=== PATIENT | male | born 1940 | race Caucasian/White ===

== ENCOUNTER 2017-05-19 23:32 | Emergency (ER) | payer MEDICARE, OTHER ==
[~2017-05-19] VITALS: Ht 167.6 cm; Wt 81.8 kg
[2017-05-19] MEDS ORDERED: METO50TA7 (23:48)
[2017-05-19] MEDS ORDERED: GLUC750T2 (23:48)
[2017-05-19] MEDS ORDERED: CAPT1TAB18 (23:48)
[2017-05-19] MEDS ORDERED: HYDR25TAB (23:48)
[2017-05-19] MEDS ORDERED: NEFA150T (23:48)
[2017-05-19] MEDS ORDERED: SIMV10TA2 (23:48)
[2017-05-19] MEDS ORDERED: IMIQ5CRE (23:48)
[2017-05-19] MEDS ORDERED: FLUTISP (23:48)
[2017-05-19] MEDS ORDERED: ASPI81TA18 (23:48)
[2017-05-20] MEDS ORDERED: PERCOCET 5MG/325MG TAB PO ONE (03:00)
--- NOTE | 2017-05-20 03:50 | REPUSA ---
CLINICAL HISTORY: Neck pain. TECHNIQUE: Multiple axial images were obtained through the cervical spine. Images were also reconstru cted in coronal and sagittal planes. The study was performed without IV contrast. COMMENTS: There are diffuse spondylotic changes. Findings are demonstrated by disc space narrowing, osteophyte formation and degenerative endplate changes. Facet joint arthropathy. No fracture or dislocation is s een. No aggressive bone lesion is noted. Moderate changes of diffuse idiopathic skeletal hyperostosis. IMPRESSION: Spondylosis. Diffuse idiopathic skeletal hyperostosis. Thank you for your kind referral of this patient.
--- NOTE | 2017-05-20 03:50 | REPUSA ---
CLINICAL HISTORY: Head trauma. TECHNIQUE: Multiple axial brain CT scan sections were obtained from base to vertex without contrast a dministration. COMMENTS: Left parietal subgaleal soft tissue hematoma. There is no evidence of skull fracture. The study shows normal configuration of sella turcica. There are no intra or extra-axial collections. There is no mass effect or midline shift. There is no evidence of hematoma formation. No hydrocephal us is present. No abnormal calcifications are noted. No significant abnormalities are seen either in the posterior fossa or supratentorial compartment. The sinuses and mastoid air cells are patent. IMPRESSION: No evidence of acute intracranial pathology. No intracranial hemorrhage or skull fracture. Thank you for your kind referral of this patient.
--- NOTE | 2017-05-20 04:00 | REPUSA ---
CLINICAL HISTORY: Pain. TECHNIQUE: Multiple axial CT images were obtained through the thoracic spine without IV contrast mate rial. MPR coronal and sagittal sequences were obtained. COMMENTS: Moderate osteopenia of the visualized bones. 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 There is no fracture visualized. The paraspinal soft tissues are unremarkable. There are no lytic or blastic lesions. The paravertebral soft tissue space is normal. IMPRESSION: Diffuse idiopathic skeletal hyperostosis. Thank you for your kind referral of this patient.
[2017-05-20] MEDS ORDERED: PRED20TA PO ×2 (04:23→04:36)
[2017-05-20] MEDS ORDERED: PERC5TAB12 PO ×2 (04:23→04:36)
[2017-05-20] MEDS ORDERED: OXYCODONE/APAP 5MG/325MG(BULK FOR ED) 1 TABLET PO ONE (04:30)
[2017-05-20] MEDS ORDERED: predniSONE 20 MG TAB PO ONE (04:30)
[2017-05-20 04:49] VITALS: BP 120/60
== END 2017-05-20 04:51 | disposition home or self-care (01) ==
LOC: M ED 23:32
DX: M54.9 Dorsalgia, unspecified (principal); Z91.81 History of falling; M48.12 Ankylosing hyperostosis [Forestier], cervical region; Z79.899 Other long term (current) drug therapy; Z79.82 Long term (current) use of aspirin

== ENCOUNTER → 2020-09-05 | Outpatient (CLI) | payer MEDICARE, OTHER ==
[~2020-09-05] MED LIST: ASPI81TA52; CAPT1TAB18; FLUTISP; GLUC750T13; HYDR-3490; IMIQ5CRE; METO50TA7; NEFA150T; PERC5TAB12 PO; PRED20TA PO; SIMV10TA21
--- NOTE | 2020-09-06 23:40 | ECWPNPC ---
PATIENT NAME: OLEKSANDR CHANEL : 1940 GENDER: MALE VISIT DATE: 09/05/2020 DISCHARGE DATE: 09/05/20 0956 VISIT LOCKED DATE TIME: PHYSICIAN: FRANCESCA BENTON RESOURCE: FRANCESCA BENTON REASON FOR APPOINTMENT 1. DISCOMFORT INTERSCAPULAR AROUND THE C7 AREA,CERVICAL SPONDYLOSIS HISTORY OF PRESENT ILLNESS DEPRESSION SCREENING: PHQ-2 (2015 EDITION) LITTLE INTEREST OR PLEASURE IN DOING THINGS?NOT AT ALL FEELING DOWN, DEPRESSED, OR HOPELESS?NOT AT ALL TOTAL SCORE0 GENERAL: 80-YEAR-OLD GENTLEMAN BEING REFERRED BY [facility] FOR PERSISTENT NECK AND UPPER BACK PAIN. SUSTAINED INJURIES AFTER FALLING A FEW YEARS AGO. HE WAS SEEN AT THE EMERGENCY ROOM [facility]. HE ATTENDED PHYSICAL THERAPY WITH NO IMPROVEMENT. CONTINUES TO BE VERY ACTIVE. PAIN IS AGGRAVATED BY USE OF HIS ARMS. DENIES RECENT FEVER, ILLNESS OR SUDDEN WEIGHT LOSS. DENIES BOWEL OR BLADDER INCONTINENCE. - - -. FALL RISK SCREENING: SCREENING : NO FALLS REPORTED IN THE LAST YEAR , : NO FALLS REPORTED IN THE LAST YEAR. PAIN SCREENING: PATIENT HAS A COMPLAINT OF ACUTE OR CHRONIC PAIN :YES LOCATION OF PAIN:NECK, MID BACK INTENSITY OF PAIN (SCALE OF 1 TO 10):9 WHAT DOES YOUR PAIN FEEL LIKE:THROBBING DURATION:CONTINOUS, CONSTANT, ALL DAY PAIN IS INCREASED BY:ACTIVITIES PAIN IS DECREASED BY:OTHERS " NOTHING YET " TRY HEATING PACK NURSING NOTE: - - -. PAIN CENTER INTAKE QUESTIONS: DO YOU HAVE A HISTORY OF MRSA? :NO DO YOU TAKE A BLOOD THINNERS? :NO DO YOU HAVE ANY BLEEDING DISORDERS? :NO ANY NEW NUMBNESS OR WEAKNESS IN YOUR LEGS OR ARMS? :NO ANY PACEMAKER,DEFIBRILLATOR, OR DORSAL COLUMN STIMULATOR? :NO DO YOU HAVE ANY RASHES OR OPEN SORES? :NO ARE YOU ALLERGIC TO IV DYE? :NO ARE YOU DIABETIC? :NO ANY NEW PROBLEMS WITH YOUR MEDICATIONS? :NO HAVE YOU RECEIVED A VACCINE IN THE PAST 30 DAYS? :YES IF SO WHAT VACCINE AND WHEN? 2ND COVID 09/05/2020 DO YOU PLAN TO RECEIVE A VACCINE IN THE NEXT 21 DAYS? :NO DO YOU NEED ANY PRESCRIPTION? :NO DO YOU TAKE ANY IMMUNOSUPPRESSIVE MEDICATIONS? :NO CURRENT MEDICATIONS TAKING ACETAMINOPHEN 325 MG CAPSULE 1 CAPSULE NEEDED ORALLY EVERY 4 HRS TAKING ASPIRIN 81 MG TABLET DELAYED RELEASE 1 TABLET ORALLY ONCE A DAY TAKING CAPTOPRIL 50 MG TABLET 2 TABLET ORALLY TWICE A DAY TAKING CENTRUM SILVER ADULT 50+ - TABLET DIRECTED ORALLY 50 TAKING CLOBETASOL PROPIONATE 0.05 % SOLUTION 1 APPLICATION EXTERNALLY TWICE A DAY TAKING FISH OIL 1000 MG CAPSULE 1 CAPSULE ORALLY TWICE A DAY TAKING GLUCOSAMINE CHOND DOUBLE STR - TABLET DIRECTED ORALLY 500-400MG TAKING HYDROCHLOROTHIAZIDE 25 MG TABLET 1 TABLET IN THE MORNING ORALLY ONCE A DAY TAKING LIDODERM 5 % PATCH 1 PATCH REMOVE AFTER 12 HOURS EXTERNALLY ONCE A DAY TAKING METOPROLOL TARTRATE 50 MG TABLET 3 TABLET WITH FOOD ORALLY TWICE A DAY TAKING MOBIC 7.5 MG TABLET 1 TABLET ORALLY ONCE A DAY TAKING NEFAZODONE HCL 150 MG TABLET 1 TABLET ORALLY TWICE A DAY TAKING SIMVASTATIN 10 MG TABLET 1 TABLET IN THE EVENING ORALLY ONCE A DAY TAKING VITAMIN E 1000 UNIT CAPSULE 1 CAPSULE ORALLY ONCE A DAY MEDICATION LIST REVIEWED AND RECONCILED WITH THE PATIENT PAST MEDICAL HISTORY NECK PAIN ALLERGIES NKEA NKFA NIACIN SURGICAL HISTORY RIGHT ARM SHOULDER, RIGHT LEG INGUINAL HERNIA REPAIR- BILATERAL FAMILY HISTORY FATHER: , DIAGNOSED WITH UNSPECIFIED HEART DISEASE MOTHER: , HYPERTENSION SIBLINGS: ALIVE SON(S): ALIVE DAUGHTER(S): ALIVE 1 SISTER(S) - HEALTHY. 1 SON(S) , 2 DAUGHTER(S) - HEALTHY. SOCIAL HISTORY GENERAL: TOBACCO USE ARE YOU A:NONSMOKER LATEX QUESTIONNAIRE LATEX ALLERGY : HAVE YOU EVER DEVELOPED ANY TYPE OF REACTION AFTER HANDLING LATEX PRODUCTS SUCH RUBBER GLOVES, CONDOMS, DIAPHRAGMS, BALLOONS, SOCKS, OR UNDERWEAR?NO LATEX ALLERGY : HAVE YOU EVER DEVELOPED ANY TYPE OF REACTION DURING OR AFTER DENTAL APPOINTMENT, VAGINAL/RECTAL EXAMINATION, SURGICAL PROCEDURE, OR ANY OTHER EXPOSURE?NO LATEX RISK : HAVE YOU EVER HAD ANY DIFFICULTY BREATHING OR HIVES AFTER EATING OR HANDLING ANY FRUITS, OR VEGETABLES; SUCH KIWI, BANANAS, STONE FRUITS, OR CHESTNUTSNO LATEX RISK : DO YOU HAVE A PREVIOUS PERSONAL HISTORY OF MORE THAN NINE SURGERIES, SPINA BIFIDA, OR REPEATED CATHERIZATIONS? NO LATEX RISK : ARE YOU FREQUENTLY EXPOSED TO LATEX PRODUCTS IN YOUR OCCUPATION?NO DATE ASKED : 09/05/2020 ALCOHOL USE: NO. RECREATIONAL DRUG USE DRUG USE?NO LANGUAGE LANGUAGES SPOKEN:DANISH LEARNING BARRIERS / SPECIAL NEEDS CHANGE FROM LAST VISIT?NO BARRIERS TO LEARNING?NO HEARING IMPAIRED?NO VISION IMPAIRED?YES READER COGNITIVELY IMPAIRED?NO READINESS TO LEARN?YES LEARNING PREFERENCES?NO LEARNING CAPABILITIES PRESENT?YES EMOTIONAL BARRIERS?NO SPECIAL DEVICES?NO EXERCISE PLANNER NEEDED?NO DOMESTIC VIOLENCE DO YOU FEEL SAFE IN YOUR ENVIRONMENT?YES HOSPITALIZATION/MAJOR DIAGNOSTIC PROCEDURE SEE ABOVE REVIEW OF SYSTEMS CONSTITUTIONAL: ANY RECENT FEVER NO . CHILLS NO . WEIGHT CHANGE OF UNKNOWN REASONS NO . GASTROENTEROLOGY: NEW UNEXPLAINABLE CHANGES IN BOWEL CONTROL NO . CONSTIPATION NO . GENITOURINARY: ANY NEW CHANGE IN BLADDER CONTROL? NO . NEUROLOGY: NEW ONSET DIZZINESS OR NEUROLOGICAL CHANGES NOT MENTIONED NO . NEW NUMBNESS OR PAIN PATTERNS NOT MENTIONED AND PERTINENT TO TODAY'S VISIT NO . CARDIOLOGY: NEW CHEST PRESSURE NO . PATIENT DENIES NO . RESPIRATORY: UNEXPLAINABLE COUGH NO . NEW SHORTNESS OF BREATH NO . VITAL SIGNS WT 217.2 LBS, HT 67 IN, BMI 34.01 INDEX, BP 175/85 MM HG, HR 68 /MIN, RR 18 /MIN, TEMP 97.7 F, OXYGEN SAT % 98%, SAFE IN ENV? (Y/N) YES, NA INITIALS VA 08:39T.ELYSSA MORSE. EXAMINATION GENERAL EXAMINATION: GENERALNO ACUTE DISTRESS, WELL NOURISHED AND HYDRATED. PSYCHAPPROPRIATE MOOD AND AFFECT . NECK:NO LYMPHADENOPATHY, SUPPLE. LUNGS:CLEAR TO AUSCULTATION BILATERALLY, NO WHEEZES, RHONCHI, RALES. HEART:NO MURMURS, REGULAR RATE AND RHYTHM. MUSCULOSKELETAL: TRIGGER POINTS: ELICITED IN NECK AND UPPER BACK/THORACIC REGION BILATERALLY. ASSESSMENTS MYALGIA, OTHER SITE - M79.18 (PRIMARY) TREATMENT MYALGIA, OTHER SITE NOTES: TRIGGER POINT INJECTIONS BILATERAL NECK,BILATERAL THORACIC-BOOK 2 WEEKS OUT -COVID IMMO PRINTED AND REVIEWED PRE PROCEDURE WITH PATIENT KELLIE MORSE. PROCEDURE CODES FA211 ESTABILISHED PATIENT [facility] CHARGE DISPOSITION & COMMUNICATION FOLLOW UP POST PROCEDURE (REASON: TRIGGER POINT INJECTIONS BILATERAL NECK,BILATERAL THORACIC-BOOK 2 WEEKS OUT -COVID IMMO) ELECTRONICALLY SIGNED BY MANSOOR LEBLANC ON 09/06/2020 AT 02:24 PM EDT DISCLAIMER : THIS IS A VISIT SUMMARY EXTRACTED FROM THE Level CHART. IT IS NOT A COPY OF THE Level PROGRESS NOTE. ZENY
== END ==
LOC: M PAIN 08:30
PROVIDERS: ATTEND Nurse Practitioner Family
DX: M79.18 Myalgia, other site (principal); Z79.82 Long term (current) use of aspirin; Z79.899 Other long term (current) drug therapy

== ENCOUNTER → 2020-09-15 | Outpatient (CLI) | payer MEDICARE, OTHER | LOC: M LABSMTC 09:47 | PROVIDERS: ATTEND Anesthesiology | DX: Z20.822 Contact with and (suspected) exposure to COVID-19 (principal) ==

== ENCOUNTER → 2020-09-20 | Outpatient (CLI) | payer MEDICARE, OTHER ==
[~2020-09-20] MED LIST changes: +BUPIVACAINE HCL 0.25% 10ML VIAL As Ordered ONE; +BUPIVACAINE HCL 0.25% 30ML VIAL As Ordered ONE
--- NOTE | 2020-09-22 02:31 | ECWPNPC ---
PATIENT NAME: OLEKSANDR CHANEL : 1940 GENDER: MALE VISIT DATE: 09/20/2020 DISCHARGE DATE: 09/20/20 1023 VISIT LOCKED DATE TIME: PHYSICIAN: MATTY MCKEON MD RESOURCE: MATTY MCKEON MD REASON FOR APPOINTMENT 1. TRIGGER POINT INJECTIONS BILATERAL NECK,BILATERAL THORACIC HISTORY OF PRESENT ILLNESS GENERAL: -. FALL RISK SCREENING: SCREENING : NO FALLS REPORTED IN THE LAST YEAR. PAIN SCREENING: PATIENT HAS A COMPLAINT OF ACUTE OR CHRONIC PAIN :YES LOCATION OF PAIN:NECK, UPPER BACK INTENSITY OF PAIN (SCALE OF 1 TO 10):9 WHAT DOES YOUR PAIN FEEL LIKE:OTHER "HARD PAIN IN THE CENTER OF MY BACK," MULTIPLE HEADACHES A MONTH AT LEAST ONCE A DAY, TOP OF HEAD. PAIN IS INCREASED BY:ACTIVITIES PAIN IS DECREASED BY:USE OF PAIN MEDICATIONS PLAN/GOALS/TREATMENT/INTERVENTION/FOLLOW UP:SEE PLAN NURSING NOTE: -. PAIN CENTER INTAKE QUESTIONS: DO YOU HAVE A HISTORY OF MRSA? :NO DO YOU TAKE A BLOOD THINNERS? :NO DO YOU HAVE ANY BLEEDING DISORDERS? :NO ANY NEW NUMBNESS OR WEAKNESS IN YOUR LEGS OR ARMS? :NO ANY PACEMAKER,DEFIBRILLATOR, OR DORSAL COLUMN STIMULATOR? :NO DO YOU HAVE ANY RASHES OR OPEN SORES? :NO ARE YOU ALLERGIC TO IV DYE? :NO ARE YOU DIABETIC? :NO ANY NEW PROBLEMS WITH YOUR MEDICATIONS? :NO HAVE YOU RECEIVED A VACCINE IN THE PAST 30 DAYS? :YES IF SO WHAT VACCINE AND WHEN? 2ND COVID VACCINE, EARLY PART OF DO YOU PLAN TO RECEIVE A VACCINE IN THE NEXT 21 DAYS? :NO DO YOU NEED ANY PRESCRIPTION? :NO DO YOU TAKE ANY IMMUNOSUPPRESSIVE MEDICATIONS? :NO ANY HISTORY OF SEIZURES? :NO ANY HISTORY OF CARDIAC ISSUES OR EVENTS? :NO DO YOU HAVE ANY KIDNEY OR LIVER DISEASE? :NO DO YOU HAVE SLEEP APNEA? :NO ANY RECENT HEAD INJURY? :NO DO YOU HAVE ANY NEW INFECTIONS? :NO IS THERE A CHANCE YOU COULD BE ? :N/A ARE YOU BREAST FEEDING? :N/A WHEN DID YOU LAST EAT? : -09/19 2200 WHEN DID YOU LAST DRINK? : -09/20 0800 WHAT DID YOU LAST DRINK? : -WATER NAME OF PERSON DRIVING YOU HOME? : DO YOU HAVE ANY OTHER QUESTIONS OR CONCERNS? : NO CURRENT MEDICATIONS TAKING ACETAMINOPHEN 325 MG CAPSULE 1 CAPSULE NEEDED ORALLY EVERY 4 HRS TAKING ASPIRIN 81 MG TABLET DELAYED RELEASE 1 TABLET ORALLY ONCE A DAY TAKING CAPTOPRIL 50 MG TABLET 2 TABLET ORALLY TWICE A DAY, NOTES: 09/20 699 TAKING CENTRUM SILVER ADULT 50+ - TABLET DIRECTED ORALLY 50 TAKING CLOBETASOL PROPIONATE 0.05 % SOLUTION 1 APPLICATION EXTERNALLY TWICE A DAY TAKING FISH OIL 1000 MG CAPSULE 1 CAPSULE ORALLY ONCE A DAY TAKING GLUCOSAMINE CHOND DOUBLE STR - TABLET DIRECTED ORALLY 500-400MG TAKING HYDROCHLOROTHIAZIDE 25 MG TABLET 1 TABLET IN THE MORNING ORALLY ONCE A DAY, NOTES: 09/20 699 TAKING LIDODERM 5 % PATCH 1 PATCH REMOVE AFTER 12 HOURS EXTERNALLY ONCE A DAY TAKING METOPROLOL TARTRATE 50 MG TABLET 3 TABLET WITH FOOD ORALLY TWICE A DAY, NOTES: 09/20 699 TAKING MOBIC 7.5 MG TABLET 1 TABLET ORALLY ONCE A DAY TAKING NEFAZODONE HCL 150 MG TABLET 1 TABLET ORALLY TWICE A DAY TAKING SIMVASTATIN 10 MG TABLET 1 TABLET IN THE EVENING ORALLY ONCE A DAY TAKING VITAMIN E 1000 UNIT CAPSULE 1 CAPSULE ORALLY ONCE A DAY MEDICATION LIST REVIEWED AND RECONCILED WITH THE PATIENT PAST MEDICAL HISTORY NECK PAIN ALLERGIES NKEA NKFA NIACIN: SYNCOPE SOCIAL HISTORY GENERAL: TOBACCO USE ARE YOU A:NONSMOKER LATEX QUESTIONNAIRE LATEX ALLERGY : HAVE YOU EVER DEVELOPED ANY TYPE OF REACTION AFTER HANDLING LATEX PRODUCTS SUCH RUBBER GLOVES, CONDOMS, DIAPHRAGMS, BALLOONS, SOCKS, OR UNDERWEAR?NO LATEX ALLERGY : HAVE YOU EVER DEVELOPED ANY TYPE OF REACTION DURING OR AFTER DENTAL APPOINTMENT, VAGINAL/RECTAL EXAMINATION, SURGICAL PROCEDURE, OR ANY OTHER EXPOSURE?NO LATEX RISK : HAVE YOU EVER HAD ANY DIFFICULTY BREATHING OR HIVES AFTER EATING OR HANDLING ANY FRUITS, OR VEGETABLES; SUCH KIWI, BANANAS, STONE FRUITS, OR CHESTNUTSNO LATEX RISK : DO YOU HAVE A PREVIOUS PERSONAL HISTORY OF MORE THAN NINE SURGERIES, SPINA BIFIDA, OR REPEATED CATHERIZATIONS? NO LATEX RISK : ARE YOU FREQUENTLY EXPOSED TO LATEX PRODUCTS IN YOUR OCCUPATION?NO DATE ASKED : 09/19/2020 RECREATIONAL DRUG USE DRUG USE?NO LANGUAGE LANGUAGES SPOKEN:MONGOLIAN LEARNING BARRIERS / SPECIAL NEEDS CHANGE FROM LAST VISIT?NO BARRIERS TO LEARNING?NO HEARING IMPAIRED?NO VISION IMPAIRED?YES READING GLASSES COGNITIVELY IMPAIRED?NO READINESS TO LEARN?YES LEARNING PREFERENCES?NO LEARNING CAPABILITIES PRESENT?YES EMOTIONAL BARRIERS?NO SPECIAL DEVICES?NO FIREBOAT OPERATOR NEEDED?NO DOMESTIC VIOLENCE DO YOU FEEL SAFE IN YOUR ENVIRONMENT?YES MARITAL STATUS: . VITAL SIGNS WT 216 LBS, HT 67 IN, BMI 33.83 INDEX, BP 178/81 MM HG, HR 62 /MIN, RR 18 /MIN, TEMP 96.7 F, OXYGEN SAT % 99%, SAFE IN ENV? (Y/N) YES, NA INITIALS WY 09:14, REVIEWED BY: SAMANTHA RN. EXAMINATION GENERAL EXAMINATION: A HISTORY AND PHYSICAL EXAM ON THE PATIENT WAS DONE ON 09/05/2020 (DATE OF ORIGINAL ASSESSMENT) IN PREPARATION OF SURGERY/PROCEDURE. I HAVE NOW REASSESSED THIS PATIENT'S HEALTH STATUS AND PERFORMED AN UPDATED EXAM TODAY. ALL CHANGES IN THE PATIENT'S HISTORY, PHYSICAL EXAM, PRE-EXISTING CONDITONS, AND INDICATIONS/CONTRAINDICATIONS TO THE PLANNED PROCEDURE AND ANESTHESIA ARE DOCUMENTED AND EVALUATED BELOW. I ATTEST TO THE ADEQUACY AND APPROPRIATENESS OF MY ASSESSMENT, AND CONFIRM THE NECESSITY FOR THE PLANNED PROCEDURE. THE PATIENT IS ALERT, ORIENTED TIMES THREE AND COOPERATIVE. LUNGS ARE CLEAR TO AUSCULTATION. HEART SHOWS REGULAR RHYTHM, NO MURMURS AND NO GALLOPS. ASSESSMENTS MYALGIA, OTHER SITE - M79.18 (PRIMARY) TREATMENT MYALGIA, OTHER SITE COMPLETION OF PROCEDURAL VISIT WHEN MEETS CRITERIA NOTES: 09/19/20 1400 PAT COMPLETED. Dennis LEGGETT RN BSN. PROCEDURES PAIN NURSING RECORD PROCEDURE IN ROOM 0910, PHYSICIAN IN ROOM 0948, START 0952, FINISH 0955, PHYSICIAN OUT OF ROOM 0956, OUT OF ROOM 1020, ECG N/A, PATIENT SHIELDED N/A, SAFETY STRAP N/A, PREP ALCOHOL DR. MCKENO, DRESSING TEGADERM Dennis HERNANDEZ RN LOC: 1. ALERT, ORIENTED RESP: 1. REGULAR, NO DYSPNEA COLOR: 1. PINK SKIN: 1. WARM, DRY POSITION: 5. SITTING VITALS: GIRISH HERNANDEZ 09/20/2020 10:10:08 AM > 172/88 HR 66 16 98% R/A D/C V/S COMPLETION OF PROCEDURE APPOINTMENT: POST PAIN 0, DRESSING SITE DRY AND INTACT, IV N/A, GAIT STEADY, TEACHING COMPLETED, PATIENT ACKNOWLEDGES UNDERSTANDING YES, PROCEDURE APPOINTMENT COMPLETED AT 1020 PN TRIGGER POINT INJECTION NO STEROIDS PRE PROCEDURE DIAGNOSIS 1. MYALGIA 2. PAIN AT BILATERAL NECK AREA AND BILATERAL THORACIC AREA POST PROCEDURE DIAGNOSIS 1. MYALGIA 2. PAIN AT BILATERAL NECK AREA AND BILATERAL THORACIC AREA PROCEDURE TRIGGER POINT INJECTION AT BILATERAL NECK AREA AND BILATERAL THORACIC AREA SURGEON DR. MATTY MCKEON QUILTING MACHINE OPERATOR NONE ANESTHESIA LOCAL PRE PROCEDURE NOTE PATIENT WITH HISTORY OF CHRONIC PAIN AT RIGHT AND LEFT NECK AREA AND RIGHT AND LEFT THORACIC AREA. I EVALUATED THE PATIENT AND REVIEWED THE CHART. THERE IS EVIDENCE OF BANDS OF TISSUE WITH RESTRICTION OF MOVEMENT AND PRESENCE OF TRIGGER POINT AT THE RIGHT AND LEFT NECK AREA AND RIGHT AND LEFT THORACIC AREA. I WENT OVER THE RISKS, ALTERNATIVES, AND BENEFITS ASSOCIATED WITH THIS PROCEDURE. THE PATIENT WOULD LIKE TO PROCEED AND GAVE CONSENT TO PERFORM THE PROCEDURE. THE PATIENT DENIES UNEXPLAINABLE WEIGHT LOSS, FEVER, CHILLS, OR NEW CHANGES IN URINARY OR BOWEL CONTROL. THE PATIENT IS COVID-19 NEGATIVE DESCRIPTION OF PROCEDURE THE PATIENT WAS BROUGHT TO THE PROCEDURE ROOM AND PLACED IN THE SITTING POSITION. THE AREA WAS CLEANED WITH ALCOHOL. THE PROCEDURE WAS DONE USING ASEPTIC STERILE TECHNIQUES. A TIMEOUT WAS PERFORMED WHERE THE CONSENTED SITE WAS VERIFIED WITH EVERYONE IN THE ROOM. USING A 25-GAUGE NEEDLE, TRIGGER POINTS WERE INJECTED INTO THE RIGHT AND LEFT NECK AREA AND RIGHT AND LEFT THORACIC AREA WITH A TOTAL OF 40 ML OF BUPIVACAINE 0.25%. AGREED WITH THE PATIENT THE PROCEDURE WAS DONE WITHOUT STEROIDS. THERE WAS NO EVIDENCE OF BLOOD, PARESTHESIA OR CEREBROSPINAL FLUID DURING THE PROCEDURE. THE PATIENT WAS SENT TO THE RECOVERY ROOM. THE PATIENT WAS MOVING THE EXTREMITIES AND DOING WELL. THERE WAS NO COMPLICATION DURING THE PROCEDURE. EBL LESS THAN 5 ML. POST PROCEDURE NOTE DEPENDING ON THE RESULTS, CONSIDER DOING THIS PROCEDURE WITH STEROIDS. DEPENDING ON THE RESULTS OF THAT, CONSIDER FACET BLOCKS. THE PROCEDURE DONE WAS DISCUSSED WITH THE PATIENT. THE PATIENT WILL BE SEEN IN A FOLLOW UP IN THE NEXT FEW WEEKS. I AM LOOKING FOR LONG LASTING PAIN RELIEF FOR THE PATIENT WITH THIS INTERVENTION. INSTRUCTIONS WERE GIVEN, QUESTIONS WERE ANSWERED, AND THE PATIENT EXPRESSED UNDERSTANDING AND AGREES WITH THE PLAN. I, DAREK SIDHU, DOCUMENTED THE ABOVE INFORMATION ACTING A SCRIBE FOR DR. MCKEON. I HAVE REVIEWED THE ABOVE DOCUMENT, WRITTEN BY DAREK SIDHU, WORSTED WINDER, AND I VERIFY THAT IT IS ACCURATE PROCEDURE CODES 13591 INJECT TRIGGER POINTS 3/> DISPOSITION & COMMUNICATION FOLLOW UP FOLLOW UP WITH CYTOLOGIST (REASON: POST TRIGGER POINT INJECTION BILATERAL NECK AND BILATERAL THORACIC) ELECTRONICALLY SIGNED BY MATTY MCKEON MD, MD ON 09/21/2020 AT 01:35 PM EDT DISCLAIMER : THIS IS A VISIT SUMMARY EXTRACTED FROM THE [employer] CHART. IT IS NOT A COPY OF THE [employer] PROGRESS NOTE. MTDD
== END ==
LOC: M PAIN 09:00
PROVIDERS: ATTEND Anesthesiology
DX: M79.18 Myalgia, other site (principal); Z79.82 Long term (current) use of aspirin; Z79.899 Other long term (current) drug therapy

== ENCOUNTER → 2020-10-04 | Outpatient (CLI) | payer MEDICARE, OTHER ==
[~2020-10-04] MED LIST changes: -BUPIVACAINE HCL 0.25% 10ML VIAL As Ordered ONE; -BUPIVACAINE HCL 0.25% 30ML VIAL As Ordered ONE
--- NOTE | 2020-10-06 01:06 | ECWPNPC ---
PATIENT NAME: OLEKSANDR CHANEL : 1940 GENDER: MALE VISIT DATE: 10/04/2020 DISCHARGE DATE: 10/04/20 1026 VISIT LOCKED DATE TIME: PHYSICIAN: FRANCESCA BENTON RESOURCE: FRANCESCA BENTON REASON FOR APPOINTMENT 1. POST TRIGGER POINT INJECTIONS BILATERAL NECK,BILATERAL THORACIC HISTORY OF PRESENT ILLNESS GENERAL: HERE FOR POST PROCEDURE FOLLOW-UP. HAD TRIGGER POINT INJECTIONS BILATERAL NECK AND BILATERAL THORACIC REGION ON 09/20/2020. REPORTS SIGNIFICANT IMPROVEMENT POST PROCEDURE. DOES ADMIT THAT AT THE END OF THE DAY HE STILL HAS PAIN BUT IS NOT SEVERE. HE IS VERY ACTIVE. DISCUSSED TREATMENT OPTIONS TO INCLUDE PHYSICAL THERAPY FOR MYOFASCIAL RELEASE, CERVICAL FACET THERAPEUTIC BLOCKS AND TRIGGER POINT INJECTIONS. HE WILL BE ATTENDING MASSAGE THERAPY ON A REGULAR BASIS. -. FALL RISK SCREENING: SCREENING : NO FALLS REPORTED IN THE LAST YEAR. PAIN SCREENING: PATIENT HAS A COMPLAINT OF ACUTE OR CHRONIC PAIN :YES LOCATION OF PAIN:NECK, MID BACK, LOW BACK INTENSITY OF PAIN (SCALE OF 1 TO 10):3 WHAT DOES YOUR PAIN FEEL LIKE:ACHING DURATION:CONTINOUS, CONSTANT, ALL DAY PAIN IS INCREASED BY:ACTIVITIES PAIN IS DECREASED BY:OTHERS " NOTHING REALLIY " HEAT AND ICE PACK NURSING NOTE: -. PAIN CENTER INTAKE QUESTIONS: DO YOU HAVE A HISTORY OF MRSA? :NO DO YOU TAKE A BLOOD THINNERS? :NO DO YOU HAVE ANY BLEEDING DISORDERS? :NO ANY NEW NUMBNESS OR WEAKNESS IN YOUR LEGS OR ARMS? :NO ANY PACEMAKER,DEFIBRILLATOR, OR DORSAL COLUMN STIMULATOR? :NO DO YOU HAVE ANY RASHES OR OPEN SORES? :NO ARE YOU ALLERGIC TO IV DYE? :NO ARE YOU DIABETIC? :NO ANY NEW PROBLEMS WITH YOUR MEDICATIONS? :NO HAVE YOU RECEIVED A VACCINE IN THE PAST 30 DAYS? :YES IF SO WHAT VACCINE AND WHEN? 2ND COVID 09/05/2020 DO YOU PLAN TO RECEIVE A VACCINE IN THE NEXT 21 DAYS? :NO DO YOU NEED ANY PRESCRIPTION? :NO DO YOU TAKE ANY IMMUNOSUPPRESSIVE MEDICATIONS? :NO CURRENT MEDICATIONS TAKING ACETAMINOPHEN 325 MG CAPSULE 1 CAPSULE NEEDED ORALLY EVERY 4 HRS TAKING ASPIRIN 81 MG TABLET DELAYED RELEASE 1 TABLET ORALLY ONCE A DAY TAKING CAPTOPRIL 50 MG TABLET 2 TABLET ORALLY TWICE A DAY TAKING CENTRUM SILVER ADULT 50+ - TABLET DIRECTED ORALLY 50 TAKING CLOBETASOL PROPIONATE 0.05 % SOLUTION 1 APPLICATION EXTERNALLY TWICE A DAY TAKING FISH OIL 1000 MG CAPSULE 1 CAPSULE ORALLY ONCE A DAY TAKING GLUCOSAMINE CHOND DOUBLE STR - TABLET DIRECTED ORALLY 500-400MG TAKING HYDROCHLOROTHIAZIDE 25 MG TABLET 1 TABLET IN THE MORNING ORALLY ONCE A DAY TAKING LIDODERM 5 % PATCH 1 PATCH REMOVE AFTER 12 HOURS EXTERNALLY ONCE A DAY TAKING METOPROLOL TARTRATE 50 MG TABLET 3 TABLET WITH FOOD ORALLY TWICE A DAY TAKING MOBIC 7.5 MG TABLET 1 TABLET ORALLY ONCE A DAY TAKING NEFAZODONE HCL 150 MG TABLET 1 TABLET ORALLY TWICE A DAY TAKING SIMVASTATIN 10 MG TABLET 1 TABLET IN THE EVENING ORALLY ONCE A DAY TAKING VITAMIN E 1000 UNIT CAPSULE 1 CAPSULE ORALLY ONCE A DAY MEDICATION LIST REVIEWED AND RECONCILED WITH THE PATIENT PAST MEDICAL HISTORY NECK PAIN ALLERGIES NKEA NKFA NIACIN: SYNCOPE SOCIAL HISTORY GENERAL: TOBACCO USE ARE YOU A:NONSMOKER LATEX QUESTIONNAIRE LATEX ALLERGY : HAVE YOU EVER DEVELOPED ANY TYPE OF REACTION AFTER HANDLING LATEX PRODUCTS SUCH RUBBER GLOVES, CONDOMS, DIAPHRAGMS, BALLOONS, SOCKS, OR UNDERWEAR?NO LATEX ALLERGY : HAVE YOU EVER DEVELOPED ANY TYPE OF REACTION DURING OR AFTER DENTAL APPOINTMENT, VAGINAL/RECTAL EXAMINATION, SURGICAL PROCEDURE, OR ANY OTHER EXPOSURE?NO LATEX RISK : HAVE YOU EVER HAD ANY DIFFICULTY BREATHING OR HIVES AFTER EATING OR HANDLING ANY FRUITS, OR VEGETABLES; SUCH KIWI, BANANAS, STONE FRUITS, OR CHESTNUTSNO LATEX RISK : DO YOU HAVE A PREVIOUS PERSONAL HISTORY OF MORE THAN NINE SURGERIES, SPINA BIFIDA, OR REPEATED CATHERIZATIONS? NO LATEX RISK : ARE YOU FREQUENTLY EXPOSED TO LATEX PRODUCTS IN YOUR OCCUPATION?NO DATE ASKED : 10/04/2020 ALCOHOL USE: NO. RECREATIONAL DRUG USE DRUG USE?NO LANGUAGE LANGUAGES SPOKEN:TAMAZIGHT LEARNING BARRIERS / SPECIAL NEEDS CHANGE FROM LAST VISIT?NO BARRIERS TO LEARNING?NO HEARING IMPAIRED?NO VISION IMPAIRED?YES READING GLASSES COGNITIVELY IMPAIRED?NO READINESS TO LEARN?YES LEARNING PREFERENCES?NO LEARNING CAPABILITIES PRESENT?YES EMOTIONAL BARRIERS?NO SPECIAL DEVICES?NO MANAGER ADVANCED NEEDED?NO DOMESTIC VIOLENCE DO YOU FEEL SAFE IN YOUR ENVIRONMENT?YES MARITAL STATUS: . REVIEW OF SYSTEMS CONSTITUTIONAL: ANY RECENT FEVER NO . CHILLS NO . WEIGHT CHANGE OF UNKNOWN REASONS NO . GASTROENTEROLOGY: NEW UNEXPLAINABLE CHANGES IN BOWEL CONTROL NO . CONSTIPATION NO . GENITOURINARY: ANY NEW CHANGE IN BLADDER CONTROL? NO . NEUROLOGY: NEW ONSET DIZZINESS OR NEUROLOGICAL CHANGES NOT MENTIONED NO . NEW NUMBNESS OR PAIN PATTERNS NOT MENTIONED AND PERTINENT TO TODAY'S VISIT NO . CARDIOLOGY: NEW CHEST PRESSURE NO . PATIENT DENIES NO . RESPIRATORY: UNEXPLAINABLE COUGH NO . NEW SHORTNESS OF BREATH NO . VITAL SIGNS WT 218.8 LBS, HT 67 IN, BMI 34.27 INDEX, BP 182/86 MM HG, REPEAT BP 166/77 MM HG, HR 68 /MIN, RR 18 /MIN, TEMP 97.7 F, OXYGEN SAT % 97%, SAFE IN ENV? (Y/N) YES, NA INITIALS AW 1000T.ELYSSA MORSE. EXAMINATION GENERAL EXAMINATION: GENERALAWAKE,ALERT ,PLEASANT . PSYCHAFFECT NORMAL . LUNGS:LUNG COLE ARE CLEAR TO AUSCULTATION BILATERALLY. GOOD MOVEMENT OF AIR . HEART:S1, S2 IN A REGULAR RATE AND RHYTHM. NO SIGNIFICANT MURMURS, RUBS OR GALLOPS NOTED . ASSESSMENTS OTHER CHRONIC PAIN - G89.29 (PRIMARY) MYALGIA, OTHER SITE - M79.18 TREATMENT OTHER CHRONIC PAIN PAIN PROCEDURE LOGDATE OF PROCEDURE1PROCEDURE:TRIGGER POINT INJECTION BILATERAL NECK, BILATERAL THORACICAMOUNT OF PRE SEDATE0/0RESULT:IMPROVEMENT POST PROCEDURE NOTES: PATIENT WILL CALL FOR FOLLOW-UP IF HE WOULD LIKE TO CONSIDER MORE TREATMENT. PROCEDURE CODES [id number] ESTABILISHED PATIENT [facility] FACILITY CHARGE DISPOSITION & COMMUNICATION FOLLOW UP PATIENT WILL CALL FOR FOLLOW-UP IF NECESSARY (REASON: NECK AND THORACIC PAIN) ELECTRONICALLY SIGNED BY MANSOOR LEBLANC ON 10/05/2020 AT 04:17 PM EDT DISCLAIMER : THIS IS A VISIT SUMMARY EXTRACTED FROM THE [facility] CHART. IT IS NOT A COPY OF THE [facility] PROGRESS NOTE. ZENY
== END ==
LOC: M PAIN 10:00
PROVIDERS: ATTEND Nurse Practitioner Family
DX: M79.18 Myalgia, other site (principal); Z88.8 Allergy status to other drugs, medicaments and biological substances; Z79.82 Long term (current) use of aspirin; Z79.899 Other long term (current) drug therapy

== ENCOUNTER → 2021-08-31 | Outpatient (CLI) | payer MEDICARE, OTHER ==
[~2021-08-31] MED LIST changes: +IMIQ1CRE6; -IMIQ5CRE
[2021-08-31 13:19] LABS: BASO % 0.6 % (0.0-1.0); EOS # 0.3 10^3/uL (0.0-0.5); EOS % 4.9 % (0.0-3.0); HEMOGLOBIN 13.5 g/dl (13.5-17.5); LYMPH # 1.2 10^3/uL (1.5-5.0); LYMPH % 23.3 % (24.0-44.0); MEAN CORPUSCULAR HGB CONC 32.9 g/dl (32.0-36.5); MEAN CORPUSCULAR VOLUME 94.3 fl (80.0-96.0); MONO # 0.5 10^3/uL (0.0-0.8); MONO % 9.1 % (2.0-8.0); NEUTROPHILS # 3.2 10^3/uL (1.5-8.5); NEUTROPHILS % 61.3 % (36.0-66.0); PLATELET COUNT, AUTOMATED 199 10^3/uL (150-450); RED BLOOD COUNT 4.35 10^6/uL (4.30-6.10); WHITE BLOOD COUNT 5.3 10^3/uL (4.0-10.0)
[2021-08-31 13:25] LABS: APPEARANCE, URINE HAZY (CLEAR); BACTERIA, URINE AUTO NEGATIVE (NEGATIVE); BILIRUBIN, URINE AUTO NEGATIVE (NEGATIVE); BLOOD, URINE BLOOD NEGATIVE (NEGATIVE); COLOR, URINE YELLOW (YELLOW); GLUCOSE, URINE (UA) AUTO NEGATIVE (NEGATIVE); KETONE, URINE AUTO 1+ mg/dL (NEGATIVE); LEUKOCYTE ESTERASE, URINE AUTO 2+ (NEGATIVE); MUCUS, URINE SMALL (NEGATIVE); NITRITE, URINE AUTO NEGATIVE (NEGATIVE); PROTEIN, URINE AUTO NEGATIVE (NEGATIVE); RBC, URINE AUTO 1 /HPF (0-3); SPECIFIC GRAVITY URINE AUTO 1.025 (1.002-1.035); SQUAMOUS EPITHELIAL CELL UR AU 0 /HPF (0-6); WBC, URINE AUTO 16 /HPF (0-3)
[2021-08-31 13:57] LABS: ALBUMIN 3.5 GM/DL (3.2-5.2); ALT/SGPT 24 U/L (12-78); BILIRUBIN,TOTAL 0.5 MG/DL (0.2-1.0); BLOOD UREA NITROGEN 27 MG/DL (7-18); CALCIUM LEVEL 8.3 MG/DL (8.8-10.2); CARBON DIOXIDE LEVEL 30 MEQ/L (21-32); CHLORIDE LEVEL 111 MEQ/L (98-107); CHOLESTEROL LEVEL 138 MG/DL (<200); CHOLESTEROL RISK RATIO 4.058 (<5); CREATININE FOR GFR 1.19 MG/DL (0.70-1.30); FREE T4 1.02 NG/DL (0.76-1.46); GLOMERULAR FILTRATION RATE > 60.0 (>42); GLUCOSE, FASTING 97 MG/DL (70-100); HDL CHOLESTEROL 34 MG/DL (>40); LDL CHOLESTEROL 91 MG/DL (<100); NON-HDL-C 104 MG/DL; POTASSIUM SERUM 4.1 MEQ/L (3.5-5.1); SODIUM LEVEL 144 MEQ/L (136-145); TOTAL 25(OH) VITAMIN D 34.9 NG/ML (30.0-100.0); TOTAL PROTEIN 6.4 GM/DL (6.4-8.2); TRIGLYCERIDES LEVEL 67 MG/DL (<150); URIC ACID 6.7 MG/DL (3.5-7.2)
[2021-08-31 14:04] LABS: ERYTHROCYTE SEDIMENTATION RATE 12 mm/hr (0-20)
== END ==
LOC: M WUC 09:42
PROVIDERS: ATTEND Family Medicine
DX: Z00.00 Encounter for general adult medical examination without abnormal findings (principal); M50.10 Cervical disc disorder with radiculopathy, unspecified cervical region; E78.5 Hyperlipidemia, unspecified; M13.0 Polyarthritis, unspecified; I10 Essential (primary) hypertension; Z79.899 Other long term (current) drug therapy

== ENCOUNTER → 2022-04-08 | Outpatient (CLI) | payer MEDICARE, OTHER ==
[2022-04-08 17:30] LABS: CALCIUM LEVEL 9.2 MG/DL (8.8-10.2); CREATININE FOR GFR 1.52 MG/DL (0.70-1.30); GLOMERULAR FILTRATION RATE 47.3 (>42); POTASSIUM SERUM 4.5 MEQ/L (3.5-5.1)
== END ==
LOC: M WUC 13:11
PROVIDERS: ATTEND Family Medicine
DX: I10 Essential (primary) hypertension (principal)

== ENCOUNTER 2022-05-27 17:25 | Emergency (ER) | payer MEDICARE, OTHER ==
[~2022-05-27] VITALS: Ht 170.2 cm; Wt 100.0 kg
[2022-05-27 17:26] VITALS: BP 181/81
[2022-05-27] MEDS ORDERED: TIZA10TA (17:52)
[2022-05-27] MEDS ORDERED: GLUC500C65 (17:52)
[2022-05-27] MEDS ORDERED: TRAM50TA2 (17:52)
[2022-05-27] MEDS ORDERED: MELO7.5T35 (17:52)
== END 2022-05-27 19:16 | disposition left against medical advice (07) ==
LOC: M ED 17:25
DX: Z53.21 Procedure and treatment not carried out due to patient leaving prior to being seen by health care provider (principal)

== ENCOUNTER → 2022-09-03 | Outpatient (CLI) | payer MEDICARE, OTHER ==
[~2022-09-03] MED LIST changes: +GLUC500C65; +MELO7.5T35; +TIZA10TA; +TRAM50TA2
== END ==
LOC: M PAIN 10:00
PROVIDERS: ATTEND Nurse Practitioner Family
DX: M79.10 Myalgia, unspecified site (principal); G89.29 Other chronic pain; I10 Essential (primary) hypertension; G47.30 Sleep apnea, unspecified; Z86.718 Personal history of other venous thrombosis and embolism; Z88.8 Allergy status to other drugs, medicaments and biological substances; Z79.82 Long term (current) use of aspirin; Z79.899 Other long term (current) drug therapy

== ENCOUNTER → 2022-10-07 | Outpatient (CLI) | payer MEDICARE, OTHER ==
[~2022-10-07] MED LIST changes: +BUPIVACAINE HCL 0.25% 10ML VIAL As Ordered ONE; +BUPIVACAINE HCL 0.25% 30ML VIAL As Ordered ONE; +FLUT50SP17; -FLUTISP; +TRIAMCINOLONE ACETONIDE SUSP 40MG/ML 1ML VIAL As Ordered ONE
== END ==
LOC: M PAIN 08:00
PROVIDERS: ATTEND Anesthesiology
DX: M79.18 Myalgia, other site (principal); G89.29 Other chronic pain; I10 Essential (primary) hypertension; G47.30 Sleep apnea, unspecified; Z88.8 Allergy status to other drugs, medicaments and biological substances; Z79.82 Long term (current) use of aspirin; Z79.899 Other long term (current) drug therapy
CPT/HCPCS: 20552; J3301

== ENCOUNTER → 2022-10-18 | Outpatient (CLI) | payer MEDICARE, OTHER ==
[~2022-10-18] MED LIST changes: -BUPIVACAINE HCL 0.25% 10ML VIAL As Ordered ONE; -BUPIVACAINE HCL 0.25% 30ML VIAL As Ordered ONE; -TRIAMCINOLONE ACETONIDE SUSP 40MG/ML 1ML VIAL As Ordered ONE
== END ==
LOC: M RAD 13:00
PROVIDERS: ATTEND Nurse Practitioner Family
DX: M79.10 Myalgia, unspecified site (principal); M50.33 Other cervical disc degeneration, cervicothoracic region

== ENCOUNTER → 2022-10-28 | Outpatient (CLI) | payer MEDICARE, OTHER | LOC: M PAIN 14:00 | PROVIDERS: ATTEND Nurse Practitioner Family | DX: M54.6 Pain in thoracic spine (principal); M79.18 Myalgia, other site; G89.29 Other chronic pain; I10 Essential (primary) hypertension; G47.30 Sleep apnea, unspecified; Z86.718 Personal history of other venous thrombosis and embolism; Z88.8 Allergy status to other drugs, medicaments and biological substances; Z79.82 Long term (current) use of aspirin; Z79.899 Other long term (current) drug therapy ==

== ENCOUNTER → 2022-11-16 | Outpatient (CLI) | payer MEDICARE, OTHER | LOC: M RAD 10:10 | PROVIDERS: ATTEND Nurse Practitioner Family | DX: M79.10 Myalgia, unspecified site (principal); Z53.9 Procedure and treatment not carried out, unspecified reason ==

== ENCOUNTER → 2022-12-12 | Outpatient (CLI) | payer MEDICARE, OTHER | LOC: M PLAIMG 13:06 | PROVIDERS: ATTEND Nurse Practitioner Family | DX: M51.34 Other intervertebral disc degeneration, thoracic region (principal) ==

== ENCOUNTER → 2022-12-25 | Outpatient (CLI) | payer MEDICARE, OTHER | LOC: M PAIN 11:00 | PROVIDERS: ATTEND Anesthesiology | DX: M54.6 Pain in thoracic spine (principal); M48.04 Spinal stenosis, thoracic region; M54.14 Radiculopathy, thoracic region; I10 Essential (primary) hypertension; G47.30 Sleep apnea, unspecified; Z88.8 Allergy status to other drugs, medicaments and biological substances; Z79.82 Long term (current) use of aspirin; Z79.899 Other long term (current) drug therapy | CPT/HCPCS: 77003; G0463 ==

== ENCOUNTER → 2023-02-14 | Outpatient (CLI) | payer MEDICARE, OTHER ==
[~2023-02-14] MED LIST changes: +ISOVUE-M 300 61% 15ML VIAL As Ordered ONE; +LIDOCAINE 1% SDV 30ML VIAL As Ordered ONE; +methylPREDNISolone SUSP 40MG/ML 1ML VIAL (DEPO MEDROL) As Ordered ONE; +oxyCODONE 5MG TAB As Ordered ONE
== END ==
LOC: M PAIN 08:30
PROVIDERS: ATTEND Anesthesiology
DX: M54.14 Radiculopathy, thoracic region (principal); G89.29 Other chronic pain; I10 Essential (primary) hypertension; G47.30 Sleep apnea, unspecified; R91.8 Other nonspecific abnormal finding of lung field; Z86.14 Personal history of Methicillin resistant Staphylococcus aureus infection; Z88.8 Allergy status to other drugs, medicaments and biological substances; Z79.82 Long term (current) use of aspirin; Z79.899 Other long term (current) drug therapy
CPT/HCPCS: 62321; 71046; J1030; Q9967

== ENCOUNTER → 2023-03-18 | Outpatient (CLI) | payer MEDICARE, OTHER ==
[~2023-03-18] MED LIST changes: -ISOVUE-M 300 61% 15ML VIAL As Ordered ONE; -LIDOCAINE 1% SDV 30ML VIAL As Ordered ONE; -methylPREDNISolone SUSP 40MG/ML 1ML VIAL (DEPO MEDROL) As Ordered ONE; -oxyCODONE 5MG TAB As Ordered ONE
== END ==
LOC: M PAIN 14:30
PROVIDERS: ATTEND Nurse Practitioner Family
DX: M47.814 Spondylosis without myelopathy or radiculopathy, thoracic region (principal); G89.29 Other chronic pain; Z86.718 Personal history of other venous thrombosis and embolism; Z86.14 Personal history of Methicillin resistant Staphylococcus aureus infection; Z88.8 Allergy status to other drugs, medicaments and biological substances; Z79.82 Long term (current) use of aspirin; Z79.899 Other long term (current) drug therapy

== ENCOUNTER → 2023-04-22 | Outpatient (CLI) | payer MEDICARE, OTHER | LOC: M EKG 10:32 | PROVIDERS: ATTEND Psychiatry & Neurology Neurology | DX: R41.3 Other amnesia (principal) ==

== ENCOUNTER → 2023-05-08 | Outpatient (CLI) | payer MEDICARE, OTHER | LOC: M PAIN 17:00 | PROVIDERS: ATTEND Nurse Practitioner Family | DX: M47.814 Spondylosis without myelopathy or radiculopathy, thoracic region (principal); G89.29 Other chronic pain; Z88.8 Allergy status to other drugs, medicaments and biological substances; Z79.82 Long term (current) use of aspirin; Z79.899 Other long term (current) drug therapy ==

== ENCOUNTER → 2023-06-26 | Outpatient (CLI) | payer MEDICARE, OTHER ==
[~2023-06-26] MED LIST changes: -FLUT50SP17; +FLUTISP; +ISOVUE-M 300 61% 15ML VIAL As Ordered ONE; +LIDOCAINE 1% SDV 30ML VIAL As Ordered ONE
== END ==
LOC: M PAIN 13:00
PROVIDERS: ATTEND Anesthesiology
DX: M47.814 Spondylosis without myelopathy or radiculopathy, thoracic region (principal); G89.29 Other chronic pain; Z86.14 Personal history of Methicillin resistant Staphylococcus aureus infection; Z86.718 Personal history of other venous thrombosis and embolism; Z88.8 Allergy status to other drugs, medicaments and biological substances; Z79.82 Long term (current) use of aspirin; Z79.899 Other long term (current) drug therapy
CPT/HCPCS: 64490; 64491; 71046; J0665; Q9967

== ENCOUNTER → 2023-07-14 | Outpatient (CLI) | payer MEDICARE, OTHER ==
[~2023-07-14] MED LIST changes: -ISOVUE-M 300 61% 15ML VIAL As Ordered ONE; -LIDOCAINE 1% SDV 30ML VIAL As Ordered ONE
== END ==
LOC: M PAIN 15:00
PROVIDERS: ATTEND Nurse Practitioner Family
DX: M47.814 Spondylosis without myelopathy or radiculopathy, thoracic region (principal); G89.29 Other chronic pain; M54.2 Cervicalgia; M54.6 Pain in thoracic spine; E78.00 Pure hypercholesterolemia, unspecified; E11.9 Type 2 diabetes mellitus without complications; I10 Essential (primary) hypertension; G47.30 Sleep apnea, unspecified; Z79.82 Long term (current) use of aspirin; Z79.899 Other long term (current) drug therapy; Z88.8 Allergy status to other drugs, medicaments and biological substances

== ENCOUNTER → 2023-08-07 | Outpatient (CLI) | payer MEDICARE, OTHER | LOC: M PAIN 13:00 | PROVIDERS: ATTEND Anesthesiology | DX: Z53.8 Procedure and treatment not carried out for other reasons (principal) ==

== ENCOUNTER → 2023-09-11 | Outpatient (CLI) | payer MEDICARE, OTHER ==
[~2023-09-11] MED LIST changes: +ISOVUE-M 300 61% 15ML VIAL As Ordered ONE; +LIDOCAINE 1% SDV 30ML VIAL As Ordered ONE
== END ==
LOC: M PAIN 08:30
PROVIDERS: ATTEND Anesthesiology
DX: M47.814 Spondylosis without myelopathy or radiculopathy, thoracic region (principal)

== ENCOUNTER → 2023-09-11 | Outpatient (CLI) | payer MEDICARE, OTHER ==
[~2023-09-11] MED LIST changes: -ISOVUE-M 300 61% 15ML VIAL As Ordered ONE; -LIDOCAINE 1% SDV 30ML VIAL As Ordered ONE
== END ==
LOC: M RAD 10:14
PROVIDERS: ATTEND Anesthesiology
DX: M47.814 Spondylosis without myelopathy or radiculopathy, thoracic region (principal)
CPT/HCPCS: 64490; 64491; 71046; J0665; Q9967

== ENCOUNTER → 2023-09-17 | Outpatient (CLI) | payer MEDICARE, OTHER ==
[2023-09-17 12:58] LABS: BASO # 0.1 10^3/uL (0.0-0.2); BASO % 0.8 % (0.0-1.0); EOS # 0.2 10^3/uL (0.0-0.5); EOS % 2.7 % (0.0-3.0); HEMATOCRIT 44.7 % (42.0-52.0); LYMPH # 1.5 10^3/uL (1.5-5.0); LYMPH % 21.8 % (24.0-44.0); MEAN CORPUSCULAR HEMOGLOBIN 31.6 pg (27.0-33.0); MEAN CORPUSCULAR HGB CONC 33.6 g/dl (32.0-36.5); MEAN CORPUSCULAR VOLUME 94.3 fl (80.0-96.0); MONO # 0.6 10^3/uL (0.0-0.8); MONO % 8.3 % (2.0-8.0); NEUTROPHILS # 4.4 10^3/uL (1.5-8.5); NEUTROPHILS % 65.6 % (36.0-66.0); PLATELET COUNT, AUTOMATED 267 10^3/uL (150-450); RED BLOOD COUNT 4.74 10^6/uL (4.30-6.10); WHITE BLOOD COUNT 6.7 10^3/uL (4.0-10.0)
[2023-09-17 13:07] LABS: APPEARANCE, URINE CLEAR (CLEAR); BACTERIA, URINE AUTO NEGATIVE (NEGATIVE); BILIRUBIN, URINE AUTO NEGATIVE (NEGATIVE); BLOOD, URINE BLOOD NEGATIVE (NEGATIVE); COLOR, URINE YELLOW (YELLOW); GLUCOSE, URINE (UA) AUTO NEGATIVE (NEGATIVE); KETONE, URINE AUTO TRACE mg/dL (NEGATIVE); LEUKOCYTE ESTERASE, URINE AUTO NEGATIVE (NEGATIVE); MUCUS, URINE SMALL (NEGATIVE); NITRITE, URINE AUTO NEGATIVE (NEGATIVE); PROTEIN, URINE AUTO NEGATIVE (NEGATIVE); RBC, URINE AUTO 0 /HPF (0-3); SPECIFIC GRAVITY URINE AUTO 1.013 (1.002-1.035); SQUAMOUS EPITHELIAL CELL UR AU 0 /HPF (0-6); UROBILINOGEN, URINE AUTO 0.2 mg/dL (0.0-2.0); WBC, URINE AUTO 1 /HPF (0-3)
[2023-09-17 13:13] LABS: ERYTHROCYTE SEDIMENTATION RATE 28 mm/hr (0-20)
[2023-09-17 13:25] LABS: BILIRUBIN,TOTAL 0.7 MG/DL (0.3-1.2); CALCIUM LEVEL 9.1 MG/DL (8.3-10.6); CHOLESTEROL RISK RATIO 4.73 (<5); CREATININE FOR GFR 1.39 MG/DL (0.70-1.30); GLOMERULAR FILTRATION RATE 52.2 (>35); HDL CHOLESTEROL 39.9 MG/DL (>40); LDL CHOLESTEROL 127.9 MG/DL (<100); NON-HDL-C 149.1 MG/DL; POTASSIUM SERUM 4.1 MMOL/L (3.5-5.1)
== END ==
LOC: M WUC 09:37
PROVIDERS: ATTEND Family Medicine
DX: Z00.00 Encounter for general adult medical examination without abnormal findings (principal); M50.10 Cervical disc disorder with radiculopathy, unspecified cervical region; E78.5 Hyperlipidemia, unspecified; M13.0 Polyarthritis, unspecified; I10 Essential (primary) hypertension; Z79.899 Other long term (current) drug therapy

== ENCOUNTER → 2023-10-16 | Outpatient (CLI) | payer MEDICARE, OTHER | LOC: M PAIN 10:45 | PROVIDERS: ATTEND Nurse Practitioner Family | DX: M47.814 Spondylosis without myelopathy or radiculopathy, thoracic region (principal); G89.29 Other chronic pain; M54.2 Cervicalgia; I10 Essential (primary) hypertension; G47.30 Sleep apnea, unspecified; E11.9 Type 2 diabetes mellitus without complications; F03.90 Unspecified dementia, unspecified severity, without behavioral disturbance, psychotic disturbance, mood disturbance, and anxiety; E78.00 Pure hypercholesterolemia, unspecified; Z79.82 Long term (current) use of aspirin; Z79.899 Other long term (current) drug therapy; Z88.8 Allergy status to other drugs, medicaments and biological substances; Z91.048 Other nonmedicinal substance allergy status ==

== ENCOUNTER → 2024-01-12 | Outpatient (CLI) | payer MEDICARE, OTHER ==
[2024-01-12 14:31] LABS: APPEARANCE, URINE CLEAR (CLEAR); BACTERIA, URINE AUTO NEGATIVE (NEGATIVE); BILIRUBIN, URINE AUTO NEGATIVE (NEGATIVE); BLOOD, URINE BLOOD NEGATIVE (NEGATIVE); COLOR, URINE YELLOW (YELLOW); GLUCOSE, URINE (UA) AUTO NEGATIVE (NEGATIVE); KETONE, URINE AUTO TRACE mg/dL (NEGATIVE); LEUKOCYTE ESTERASE, URINE AUTO TRACE (NEGATIVE); NITRITE, URINE AUTO NEGATIVE (NEGATIVE); PROTEIN, URINE AUTO NEGATIVE (NEGATIVE); RBC, URINE AUTO 0 /HPF (0-3); SPECIFIC GRAVITY URINE AUTO 1.009 (1.002-1.035); SQUAMOUS EPITHELIAL CELL UR AU 0 /HPF (0-6); UROBILINOGEN, URINE AUTO 0.2 mg/dL (0.0-2.0); WBC, URINE AUTO 1 /HPF (0-3)
[2024-01-12 14:33] LABS: BASO % 0.6 % (0.0-1.0); EOS # 0.1 10^3/uL (0.0-0.5); EOS % 1.7 % (0.0-3.0); HEMATOCRIT 41.8 % (42.0-52.0); HEMOGLOBIN 13.8 g/dl (13.5-17.5); LYMPH # 1.4 10^3/uL (1.5-5.0); LYMPH % 20.6 % (24.0-44.0); MEAN CORPUSCULAR VOLUME 93.9 fl (80.0-96.0); MONO # 0.6 10^3/uL (0.0-0.8); MONO % 8.4 % (2.0-8.0); NEUTROPHILS # 4.5 10^3/uL (1.5-8.5); NEUTROPHILS % 67.9 % (36.0-66.0); PLATELET COUNT, AUTOMATED 238 10^3/uL (150-450); RED BLOOD COUNT 4.45 10^6/uL (4.30-6.10); WHITE BLOOD COUNT 6.6 10^3/uL (4.0-10.0)
[2024-01-12 14:39] LABS: ERYTHROCYTE SEDIMENTATION RATE 26 mm/hr (0-20)
[2024-01-12 14:58] LABS: ALBUMIN 3.8 G/DL (3.2-5.2); BILIRUBIN,TOTAL 0.7 MG/DL (0.3-1.2); CALCIUM LEVEL 9.2 MG/DL (8.3-10.6); CHOLESTEROL RISK RATIO 4.67 (<5); CREATININE FOR GFR 1.51 MG/DL (0.70-1.30); GLOMERULAR FILTRATION RATE 47.5 (>35); HDL CHOLESTEROL 34.9 MG/DL (>40); LDL CHOLESTEROL 104.7 MG/DL (<100); NON-HDL-C 128.1 MG/DL; POTASSIUM SERUM 3.9 MMOL/L (3.5-5.1); TOTAL PROTEIN 6.6 G/DL (5.7-8.2)
[2024-01-12 15:01] LABS: TOTAL 25(OH) VITAMIN D 32.1 NG/ML (20.0-100.0)
== END ==
LOC: M WUC 10:01
PROVIDERS: ATTEND Family Medicine
DX: Z00.00 Encounter for general adult medical examination without abnormal findings (principal); M50.10 Cervical disc disorder with radiculopathy, unspecified cervical region; E78.5 Hyperlipidemia, unspecified; M13.0 Polyarthritis, unspecified; I10 Essential (primary) hypertension; Z79.899 Other long term (current) drug therapy

== ENCOUNTER 2024-02-08 23:58 | Emergency (ER) | payer MEDICARE, OTHER ==
[~2024-02-08] VITALS: Ht 170.2 cm; Wt 92.3 kg
[2024-02-08 23:59] VITALS: BP 170/82; TEMP 98.3; O2SAT 93
[2024-02-09] MEDS: methylPREDNISolone 125MG 2ML VIAL IM ONE (02:31)
[2024-02-09] MEDS: diazePAM 10MG/2ML SYRINGE IM ONE (02:31)
[2024-02-09] MEDS ORDERED: VALI2TAB PO (03:49)
[2024-02-09] MEDS ORDERED: MEDR4PAK PO (03:49)
== END 2024-02-09 04:06 | disposition home or self-care (01) ==
LOC: M ED 23:58
DX: M50.10 Cervical disc disorder with radiculopathy, unspecified cervical region (principal); M46.92 Unspecified inflammatory spondylopathy, cervical region; I10 Essential (primary) hypertension; E78.5 Hyperlipidemia, unspecified; Z88.8 Allergy status to other drugs, medicaments and biological substances; Z79.82 Long term (current) use of aspirin; Z79.899 Other long term (current) drug therapy; Z79.02 Long term (current) use of antithrombotics/antiplatelets
CPT/HCPCS: 72040; 96372; 99283; J2919; J3360

== ENCOUNTER → 2024-08-06 | Outpatient (REF) | payer MEDICARE, OTHER ==
[~2024-08-06] MED LIST changes: +MEDR4PAK PO; +VALI2TAB PO
[2024-08-06 15:50] LABS: ALBUMIN 2.7 G/DL (3.2-5.2); BILIRUBIN,TOTAL 0.9 MG/DL (0.3-1.2); CALCIUM LEVEL 8.2 MG/DL (8.3-10.6); CREATININE FOR GFR 2.06 MG/DL (0.70-1.30); GLOMERULAR FILTRATION RATE 33.1 (>35); POTASSIUM SERUM 3.4 MMOL/L (3.5-5.1); TOTAL PROTEIN 6.3 G/DL (5.7-8.2)
== END ==
LOC: M LAB REF 13:30
PROVIDERS: ATTEND Internal Medicine Cardiovascular Disease
DX: I50.22 Chronic systolic (congestive) heart failure (principal)

== ENCOUNTER 2024-08-27 11:26 | Inpatient (IN) | payer MEDICARE, OTHER ==
[2024-08-27 11:38] VITALS: TEMP 98.1
[2024-08-27 12:24] LABS: BASO % 0.9 % (0.0-1.0); EOS # 0.2 10^3/uL (0.0-0.5); EOS % 4.3 % (0.0-3.0); HEMATOCRIT 45.1 % (42.0-52.0); HEMOGLOBIN 14.3 g/dl (13.5-17.5); LYMPH # 0.9 10^3/uL (1.5-5.0); LYMPH % 19.3 % (24.0-44.0); MEAN CORPUSCULAR HEMOGLOBIN 29.7 pg (27.0-33.0); MEAN CORPUSCULAR HGB CONC 31.7 g/dl (32.0-36.5); MEAN CORPUSCULAR VOLUME 93.6 fl (80.0-96.0); MONO # 0.4 10^3/uL (0.0-0.8); MONO % 8.6 % (2.0-8.0); NEUTROPHILS # 3.1 10^3/uL (1.5-8.5); NEUTROPHILS % 66.3 % (36.0-66.0); PLATELET COUNT, AUTOMATED 165 10^3/uL (150-450); RED BLOOD COUNT 4.82 10^6/uL (4.30-6.10); VENOUS BASE EXCESS 3.2 (-2.0-2.0); VENOUS O2 SATURATION 47.7 % (60.0-80.0); VENOUS PARTIAL PRESSURE CO2 38.7 mmHg (38.0-50.0); VENOUS PARTIAL PRESSURE O2 22.3 mmHg (30.0-50.0); VENOUS PH 7.462 UNITS (7.330-7.430); VENOUS STANDARD HCO3 25.9 MMOL/L; VENOUS TOTAL CO2 28.2 MMOL/L (24.0-28.0); WHITE BLOOD COUNT 4.7 10^3/uL (4.0-10.0)
[2024-08-27] MEDS ORDERED: METO1TAB32 PO (12:26)
[2024-08-27] MEDS ORDERED: FURO20TA2 PO (12:27)
[2024-08-27] MEDS ORDERED: NYST-38 SS (12:27)
[2024-08-27] MEDS: cefTRIAXone SOD 2 GM in DEXTROSE 5% (D5W) ADV/MINI-BAG 50 ML IV ONE (12:30)
[2024-08-27] MEDS ORDERED: QUET50TA4 PO (12:30)
[2024-08-27] MEDS ORDERED: TRAZ-257 PO (12:31)
[2024-08-27] MEDS ORDERED: ATOR40TA75 PO (12:31)
[2024-08-27] MEDS ORDERED: BENA25CA4 PO (12:32)
[2024-08-27] MEDS ORDERED: MELA10CA6 PO (12:33)
[2024-08-27 13:35] LABS: THYROID STIMULATING HORMONE 10.581 uIU/ML (0.55-4.78)
[2024-08-27 14:01] LABS: ALBUMIN 2.5 G/DL (3.2-5.2); BILIRUBIN,DIRECT 0.7 MG/DL (<0.4); BILIRUBIN,TOTAL 1.2 MG/DL (0.3-1.2); CALCIUM LEVEL 8.1 MG/DL (8.3-10.6); CREATININE FOR GFR 1.55 MG/DL (0.70-1.30); GLOMERULAR FILTRATION RATE 45.9 (>35); POTASSIUM SERUM 3.3 MMOL/L (3.5-5.1)
[2024-08-27] MEDS ORDERED: ISOVUE-370 76% 100ML VIAL As Ordered ONE (15:04)
[2024-08-27 15:47] LABS: KETONE, URINE AUTO RFX NEGATIVE (NEGATIVE); MUCUS, URINE RFX SMALL (NEGATIVE); NITRITE, URINE AUTO RFX NEGATIVE (NEGATIVE); RBC, URINE AUTO RFX 2 /HPF (0-3); SQUAM EPITHELIAL CELL UR AURFX 1 /HPF (0-6)
[2024-08-27 15:48] LABS: LEUKOCYTE ESTERASE UR AUTO RFX 2+ (NEGATIVE); WBC, URINE AUTO RFX 35 /HPF (0-3)
[2024-08-27] MEDS: cefTRIAXone SOD 1 GM in DEXTROSE 5% (D5W) ADV/MINI-BAG 50 ML IV ONE (15:50)
[2024-08-27 16:14] LABS: PROCALCITONIN 0.1 ng/ml
[2024-08-27] MEDS ORDERED: LORazepam 2 MG/ML 1ML VIAL IV PRN (16:50)
[2024-08-27] MEDS ORDERED: MORPHINE 2 MG/ML 1ML VIAL IV PRN (16:50)
[2024-08-27] MEDS ORDERED: FURO40TA2 PO (17:08)
[2024-08-27] MEDS ORDERED: ACET-897 PO (17:09)
[2024-08-27] MEDS ORDERED: ECOT81TA5 PO (17:09)
[2024-08-27] MEDS ORDERED: HOME MED LIST COMPLETE! XX SCH (17:10)
[2024-08-27 17:30] VITALS: BP 101/65; O2SAT 94
[2024-08-27] MEDS ORDERED: HALOPERIDOL LACTATE 5MG/ML VIAL IV PRN (17:40)
[2024-08-27] MEDS: RAMELTEON 8 MG TAB (ROZEREM) PO SCH (21:13)
[2024-08-27] MEDS: traZODone 100 MG TAB PO SCH (21:13)
[2024-08-27] MEDS: QUEtiapine FUMARATE 50MG TAB PO SCH (21:13)
[2024-08-28] MEDS: LORazepam 1 MG TAB PO PRN (08:59)
[2024-08-28] MEDS: MORPHINE 10MG/0.5ML ORAL CONCENTRATE SOLUTION U/D SL PRN (08:59)
[2024-08-28] MEDS: haloperidoL 0.5 MG TAB PO PRN (08:59)
[2024-09-01] MEDS: SCOPOLAMINE 1MG TRANSDERMAL PATCH TOP PRN (11:20)
[2024-09-01] MEDS: HYOSCYAMINE SULFATE 0.125 MG SUBL TABLET PO PRN (12:19)
[2024-09-01] MEDS: ATROPINE SULFATE 1% OPHTH SOLN 2ML BTL SL PRN (14:36)
[2024-09-01] MEDS: MORPHINE 10MG/0.5ML ORAL CONCENTRATE SOLUTION U/D SL PRN (16:57)
== END 2024-09-01 23:30 | disposition expired | DRG 951 ==
LOC: EDBD 11:26 → M ED 11:26 → M ED INP 16:47 → M MS5PR 20:40
PROVIDERS: ADMIT Internal Medicine; ATTEND Internal Medicine
DX: Z51.5 Encounter for palliative care (principal); A41.9 Sepsis, unspecified organism; I50.23 Acute on chronic systolic (congestive) heart failure; J18.9 Pneumonia, unspecified organism; N39.0 Urinary tract infection, site not specified; E87.20 Acidosis, unspecified; I11.0 Hypertensive heart disease with heart failure; F03.90 Unspecified dementia, unspecified severity, without behavioral disturbance, psychotic disturbance, mood disturbance, and anxiety; I35.0 Nonrheumatic aortic (valve) stenosis; R53.1 Weakness; R74.01 Elevation of levels of liver transaminase levels; G47.33 Obstructive sleep apnea (adult) (pediatric); M54.2 Cervicalgia; I95.9 Hypotension, unspecified; E87.6 Hypokalemia; G31.83 Neurocognitive disorder with Lewy bodies; E03.9 Hypothyroidism, unspecified; E78.5 Hyperlipidemia, unspecified; Z79.899 Other long term (current) drug therapy; Z79.82 Long term (current) use of aspirin; Z86.718 Personal history of other venous thrombosis and embolism; Z66 Do not resuscitate